=== PATIENT | male | born 1990 | race Two or more races ===

== ENCOUNTER 2022-07-13 14:58 | Emergency (ER) | payer OTHER ==
[2022-07-13 15:18] VITALS: BP 126/89
--- NOTE | 2022-07-13 16:26 | ED Physician Documentation ---
PD HPI URI - Stated complaint Stated Complaint: COUGH,FEVER,BODY ACHES - Chief complaint Chief Complaint: General - History obtained from History obtained from: Patient - Additional information Additional information: Patient is a 31-year-old male with no significant past medical history presenting for evaluation of fever, body aches, cough since yesterday. He is unsure of any known sick contacts.He used [id number] cold medication yesterday without significant improvement. He called the [facility] nurse advice line who recommended to come to the emergency department evaluation For bronchitis. He has not taken any antipyretics today. He denies chest pain or difficulty breathing.He is tolerating p.o. He denies abdominal pain, vomiting or diarrhea. Review of Systems Constitutional: reports: Fever Nose: reports: Congestion Cardiac: denies: Chest pain / pressure Respiratory: reports: Cough. denies: Dyspnea GI: denies: Abdominal Pain, Vomiting : denies: Dysuria Musculoskeletal: denies: Back pain Neurologic: denies: Headache PD PAST MEDICAL HISTORY - Allergies Allergies/Adverse Reactions: Allergies Allergy/AdvReac Type Severity Reaction Status Date / Time No Known Drug Allergies Allergy Verified 07/13/22 15:17 PD ED PE NORMAL - General General: Alert and oriented X 3, No acute distress, Well developed/nourished - HEENT HEENT: Atraumatic, Moist mucous membranes, Pharynx benign (No oral swelling, exudate or erythema) - Neck Neck: Supple, no meningeal sign - Cardiac Cardiac: RRR, No murmur - Respiratory Respiratory: No respiratory distress, Clear bilaterally - Derm Derm: Warm and dry - Extremities Extremities: No edema - Neuro Neuro: Normal speech Results - Vitals Vitals: Vital Signs - 24 hr 07/13/22 15:12 Temperature 37.2 C Heart Rate 92 Respiratory 16 Rate Blood Pressure 126/89 H O2 Saturation 99 Oxygen O2 Source Room air - Labs Labs: Laboratory Tests 07/13/22 07/13/22 15:20 15:20 Influenza A (Rapid) Negative Influenza B (Rapid) Negative SARS-CoV-2 (PCR) DETECTED A PD MEDICAL DECISION MAKING - ED course Complexity details: reviewed results, re-evaluated patient ED course: Patient with URI symptoms since yesterday. He is overall very well-appearing, nonlabored with his breathing, appears well-hydrated. His vital signs are stable. His flu swab is negative. Discussed possibly getting a chest x-ray but I have low suspicion for pneumonia based on his exam.Patient is comfortable with holding off on chest x-ray at this time. A COVID swab was added onto the flu swab. He is counseled to continue with supportive care and is advised on concerning symptoms to return for. 1820 - Patient's COVID test is positive. I did call him to relay these results to him. He is understanding that he needs to quarantine. He understands to continue with supportive care and is advised on concerning symptoms to return for. Departure - Departure Disposition: 01 Home, Self Care Clinical Impression: Viral URI with cough, COVID-19 Condition: Stable Instructions: ED Viral Syndrome Comments: Her symptoms are suggestive of a viral infection. You do not have a fever here and your oxygen levels are normal. Your flu test is negative. Your COVID test is pending. We will notify you if it is positive. Please continue with h ydration, acetaminophen or ibuprofen as needed for fevers, plenty of rest. If you have any worsening symptoms such as labored breathing or vomiting please consider return to the ER. Forms: Activity restrictions Discharge Date/Time: 07/13/22 16:44
== END 2022-07-13 16:44 | disposition home or self-care (01) ==
LOC: ED 14:58
DX: U07.1 COVID-19 (principal); J06.9 Acute upper respiratory infection, unspecified
CPT/HCPCS: 87275; 87276; 99283

== ENCOUNTER 2024-01-04 15:24 | Outpatient (CLI) | payer OTHER ==
--- NOTE | 2024-01-06 07:27 | MRI Report ---
PROCEDURE: Shoulder RT WO INDICATIONS: SHOULDER PAIN TECHNIQUE: Noncontrast oblique coronal T2 fast spin echo with fat saturation, oblique sagittal T1 spin echo and T2 fast spin echo with fat saturation, axial T1 spin echo and T2 fast spin echo with fat saturation t hrough the shoulder. COMPARISON: None. FINDINGS: Image quality: Excellent. Rotator cuff: There is low-grade partial-thickness tear of the supraspinatus tendon along the bursal surface from muscular tendinous junction to the footprint. Infraspinatus and subscapularis tendons ap pear intact. There is moderate infraspinatus and subscapularis tendinosis. No rotator cuff muscle at rophy. Bones and bursae: No bone marrow contusions or fractures. Cystic change in the posterior humeral hea d. Mild acromioclavicular joint degeneration. The acromion demonstrates conventional anatomy, witho ut an os acromiale. No pathologic subacromial/subdeltoid bursal fluid is present. Capsule and soft tissues: In the absence of intra-articular contrast, the labrum and glenohumeral li gaments appear intact. Partial tear of the long head of the biceps tendon involving the musculotendin ous junction. Moderate tendinosis of the intra-articular segment of the long head of the biceps. The rotator interval appears normal, without fibrosis. The coracohumeral ligament is normal in thicknes s. IMPRESSION: 1. Partial-thickness tear of the supraspinous tendon. 2. Moderate infraspinous and subscapular tendinosis. 3. Partial tear and tendinosis of the long head of the biceps. 4. Mild acromioclavicular joint degeneration. Reviewed by: Hermilo Fonseca MD on 01/06/2024 7:26 AM PDT Approved by: Hermilo Fonseca MD on 01/06/2024 7:26 AM PDT Station ID: [id number]
== END 2024-01-04 15:25 | disposition home or self-care (01) ==
LOC: DI 15:24
DX: M75.111 Incomplete rotator cuff tear or rupture of right shoulder, not specified as traumatic (principal); S46.111A Strain of muscle, fascia and tendon of long head of biceps, right arm, initial encounter; M19.011 Primary osteoarthritis, right shoulder